=== PATIENT | female | born 1935 | race Caucasian/White ===

== ENCOUNTER 2019-10-03 22:46 | Emergency (ER) | payer MEDICARE ==
[~2019-10-03] VITALS: Ht 172.7 cm; Wt 40.0 kg
[~2019-10-03 22:46] MED LIST: AMIT150T PO; DILT120C62 PO; POLY119P2 PO; SIMV-42 PO; TIZA4TAB11 PO; UMEC1DIS PO
[2019-10-03 23:12] VITALS: BP 106/68
[2019-10-03] MEDS ORDERED: GABA-532 PO (23:39)
[2019-10-03] MEDS ORDERED: VALA10002 PO (23:39)
[2019-10-03] MEDS ORDERED: PRED20TA PO (23:39)
[2019-10-03] MEDS ORDERED: proparacaine 0.5% ophthalmic drops 15ml LEFTEYE ONE (23:45)
[2019-10-04] MEDS ORDERED: dexamethasone 4mg tablet PO ONE (00:15)
== END 2019-10-04 00:23 | disposition home or self-care (01) ==
LOC: ER 22:46
DX: B02.39 Other herpes zoster eye disease (principal); B02.9 Zoster without complications; J44.9 Chronic obstructive pulmonary disease, unspecified; Z98.890 Other specified postprocedural states; Z87.891 Personal history of nicotine dependence; Z88.8 Allergy status to other drugs, medicaments and biological substances; Z88.1 Allergy status to other antibiotic agents; Z79.899 Other long term (current) drug therapy
CPT/HCPCS: 99284

== ENCOUNTER 2019-10-31 15:02 | Emergency (ER) | payer MEDICARE ==
[~2019-10-31] VITALS: Ht 172.7 cm; Wt 43.2 kg
[~2019-10-31 15:02] MED LIST changes: +GABA-532 PO; +PRED20TA PO; +VALA10002 PO
[2019-10-31] MEDS ORDERED: LIDOCAINE 5% OINTMENT 35GM TP STA (15:30)
[2019-10-31 17:07] VITALS: BP 143/88
== END 2019-10-31 17:15 | disposition home or self-care (01) ==
LOC: ER 15:02
DX: B02.29 Other postherpetic nervous system involvement (principal); B02.30 Zoster ocular disease, unspecified; J44.9 Chronic obstructive pulmonary disease, unspecified; Z87.01 Personal history of pneumonia (recurrent); Z98.890 Other specified postprocedural states; Z88.8 Allergy status to other drugs, medicaments and biological substances; Z88.1 Allergy status to other antibiotic agents; Z79.899 Other long term (current) drug therapy
CPT/HCPCS: 99284